=== PATIENT | female | born 1995 | race Caucasian/White ===

== ENCOUNTER 2017-05-15 20:07 | Inpatient (IN) | payer MEDICAID ==
[~2017-05-15] VITALS: Ht 154.9 cm; Wt 81.2 kg
[~2017-05-15 20:07] MED LIST: CIPR500T4 PO; PHEN-538 PO
[2017-05-15 20:19] VITALS: BP 135/81; PULSE 76; RESP 18; Ht 154.9 cm; Wt 81.2 kg
[2017-05-15] MEDS ORDERED: PREN-93 PO (20:21)
[2017-05-15] MEDS ORDERED: LACTATED RINGER'S 1,000 ML IV PRN (20:57)
[2017-05-15] MEDS ORDERED: HYDROCODONE/APAP (5/325) TAB PO PRN (21:00)
[2017-05-15] MEDS ORDERED: IBUPROFEN 600 MG TAB PO PRN (21:00)
[2017-05-15] MEDS ORDERED: LIDOCAINE 1% (MPF) 30 ML INJ INJ PRN (21:00)
[2017-05-15] MEDS ORDERED: OXYTOCIN 30 UNITS/LR 500 ML IV SCH ×3 (21:00→22:30)
[2017-05-15] MEDS ORDERED: CARBOPROST 250 MCG INJ IM PRN (21:00)
[2017-05-15] MEDS ORDERED: BUTORPHANOL 2 MG INJ IV PRN ×2 (21:00)
[2017-05-15] MEDS ORDERED: METHYLERGONOVINE 0.2 MG INJ IM PRN (21:00)
[2017-05-15] MEDS ORDERED: OXYTOCIN 30 UNITS/LR 500 ML IV PRN (21:00)
[2017-05-15] MEDS ORDERED: MISOPROSTOL 200 MCG TAB PR PRN (21:00)
[2017-05-15] MEDS ORDERED: AMPICILLIN 2 GM/NS (PMX) 100 ML IV ONE (21:00)
--- NOTE | 2017-05-15 21:05 | HP ---
Date/Time of Note Date/Time of Note DATE: 05/15/17 TIME: 21:00 OB - History Hx of Present Free Text/Dictation Patient is a 21-year-old 1 para 0 approximately 39 weeks of gestation who had care in [place] Chief Complaint: Labor contractions Estimated Due Date: May 22, 2017 : 1 Para: 0 Care: None Obstetrical Complications: None Medical Complications: None Past Family/Social History * Past Medical, Surgical, Family and Obstetric Histories reviewed from chart. OB Admission Exam Vital Signs Vital Signs Vital Signs Date Time Temp Pulse Resp B/P Pulse Ox O2 Delivery O2 Flow Rate FiO2 05/15/17 20:19 98.2 76 18 135/81 Room Air Physical Exam HEENT: WNL Heart: Rhythm Normal Lungs: Clear, Equal Abdomen: WNL Extremities: Normal Reflexes: Normal Cervical Dilatation: 3cm Effacement: 75% Station: -3 Membranes: Intact Accelerations: Accelerations Present Decelerations: No Decelerations Varibility: Moderate Contractions on Admission: < 5 Minutes Apart Intensity: Moderate OB Assessment/Plan Reason for admission: active labor Plan: Expectant Management Induction Method: per Pitocin Protocol Other plan: OB ultrasound for EFW Pain meds as needed Augmentation per protocal prn Plan for ESTELLE BURTON MD May 15, 2017 21:05
[2017-05-15] MEDS: LACTATED RINGER'S 1,000 ML IV SCH (22:09)
--- NOTE | 2017-05-15 22:15 | RADRPT ---
PROCEDURE: US OB. CLINICAL INDICATION: Size and dates , contractions TECHNIQUE: Multiple sonographic images of the pelvis and gravid uterus were obtained. The images were reviewed on a PACS workstation. COMPARISON: No prior studies are available for comparison. FINDINGS: There is a single viable intrauterine gestation. Cardiac activity is present with 137 beats per min [place]. There is a vertex presentation. The placenta is fundal. There is no evidence for an abruption or placenta previa. There is a normal amount of amniotic fluid with an LALA = 8.9 cm. Measurements were made in order to determine age. The results are as follows: BPD =9.0 cm HC =32.2 cm AC =33 cm FL =7.0 cm Estimated gestational age of approximately 36 weeks and 3 days based on ultrasound measurements. Clinical age: 39 weeks and 0 days. The estimated date of delivery is 06/09/17, based on ultrasound measurements. The EFW = 2966 g, 14.1%, based on LMP age. RPTAT: AA IMPRESSION: Single viable intrauterine gestation of approximately 36 weeks and 3 days based on ultrasound measu rements. .Bhupendra Shah MD, MD Date Time Electronically viewed and signed by .Bhupendra Shah MD, on 05/15/2017 22:15 .S/
--- NOTE | 2017-05-15 22:40 | TRIAGE ---
OB Triage Datetime Report Generated by CPN: 05/15/2017 22:40 Datetime: 05/15/2017 21:46 Assessment Type: Admission Assessment Vaginal Bleeding: None Maternal Assessment Level of Consciousness: Fully Conscious DTR's/Clonus: DTRs 2+; No Clonus Headache: Denies Blurred Vision: No Respiratory Effort: Unlabored; Regular Rhythm; Equal Expansion Breath Sounds, Left: Clear and Equal Breath Sounds, Right: Clear and Equal Nausea/Vomiting: Denies RUQ Epigastric Pain: Denies Lower Extremities Edema: None Upper Extremities Edema: None Facial Edema: None Fall Risk Assessment History of Falling: (0) No Secondary Diagnosis: (0) No Ambulatory Aid: (0) Bedrest/Nurse Assist IV Therapy: (0) No Gait: (0) Normal/Bedrest/Immobile Mental Status: (0) Oriented to Own Ability Fall Score: 0 Fall Risk Score Definition: No Risk: No action required Heart Rate FHR Baseline Rate: 135 Variability: Moderate 6-25 bpm Accelerations: 15X15 Decelerations: None Category: Category I Pain Assessment Pain Scale: 4 Pain Presence: Intermittent Pain Type: Contraction Pain Location: Abdomen Pain Goal: 3 Membrane Status: Intact Datetime: 05/15/2017 21:29 Membrane Status: Intact Datetime: 05/15/2017 21:26 Stage of : Labor Comments: MONITORS OFF, US TECH AT BEDSIDE FOR EFW. LALA. Datetime: 05/15/2017 21:25 Stage of : Labor Datetime: 05/15/2017 21:10 Time of Arrival: 05/15/2017 21:45 EGA: 39.0 Arrived By: Ambulatory Datetime: 05/15/2017 21:00 Labor Evaluation Frequency: 2 Monitor Mode: External Duration (sec)2399: 60-100 Quality: Mild Pattern: Normal: <= 5 Contractions in 10 Minutes Resting Tone [place]: Relaxed Heart Rate FHR Baseline Rate: 145 Monitor Mode: External US FHR Baseline Changes: No Baseline Change Variability: Moderate 6-25 bpm Accelerations: 15X15 Decelerations: None Category: Category I Datetime: 05/15/2017 20:36 Vaginal Exam Dilatation (cms): 4.0 Effacement (%): 70 Station: -3 Exam By: Chico VINCENT RN Vaginal Bleeding: Normal Show Cervix, Consistency: Soft Cervix, Position: Posterior Presentation 'A': Cephalic Datetime: 05/15/2017 20:17 EGA: 39.0 Time Provider Notified: 05/15/2017 20:28 Provider Notified: DR BURTON Datetime: 05/15/2017 20:13 Stage of : OB Triage Time of Arrival: 05/15/2017 20:00 Arrived By: Ambulatory Arrived From: Home Chief Complaint: CONTRACTIONS THAT STARTED @ 0700 Movement: Present Contractions: Irregular Time Contractions Began: 05/15/2017 07:00 Vaginal Bleeding: Scant Patient Complaints: None Time Provider Notified: 05/15/2017 20:28 Provider Notified: DR BURTON Initial Plan: CALL TERRY GONZALEZ Maternal Assessment Level of Consciousness: Fully Conscious DTR's/Clonus: DTRs 2+; No Clonus Headache: Denies Blurred Vision: No Respiratory Effort: Unlabored; Regular Rhythm; Equal Expansion Breath Sounds, Left: Clear and Equal Breath Sounds, Right: Clear and Equal Nausea/Vomiting: Denies RUQ Epigastric Pain: Denies Lower Extremities Edema: Bilateral Lower Extremities Degree: 1+ Upper Extremities Edema: None Degree: None Facial Edema: None Temperature Route: Oral Fall Risk Assessment History of Falling: (0) No Secondary Diagnosis: (0) No Ambulatory Aid: (0) Bedrest/Nurse Assist IV Therapy: (0) No Gait: (0) Normal/Bedrest/Immobile Mental Status: (0) Oriented to Own Ability Fall Score: 0 Fall Risk Score Definition: No Risk: No action required Monitor Mode: External Monitor Mode: External US Pain Assessment Pain Scale: 8 Pain Presence: Intermittent Pain Type: Contraction Pain Location: Abdomen; Back Pain Relief Measures: Comfort Measures Datetime: 05/15/2017 20:10 Vaginal Exam Dilatation (cms): 3.0 Effacement (%): 70 Station: -3 Exam By: Chico VINCENT RN Vaginal Bleeding: None Cervix, Consistency: Soft Cervix, Position: Posterior Presentation 'A': Cephalic
[2017-05-15 23:31] LABS: BASOPHILS % 0.1 % (0.0-2.0); EOSINOPHILS # 0.1 10^3/ul (0.0-0.5); EOSINOPHILS % 0.3 % (0.0-7.0); HEMATOCRIT 39.4 % (37.0-47.0); HEMOGLOBIN 13.8 g/dl (12.0-16.0); LYMPHOCYTES # 2.4 10^3/ul (0.8-2.9); LYMPHOCYTES % 16.6 % (18.0-55.0); MEAN CORPUSCULAR HEMOGLOBIN 32.3 pg (29.0-33.0); MEAN CORPUSCULAR VOLUME 92.3 fl (72.0-104.0); MEAN PLATELET VOLUME 11.5 fl (7.4-10.4); MONOCYTE # 0.9 10^3/ul (0.3-0.9); MONOCYTES % 6.6 % (0.0-13.0); NEUTROPHIL # 10.9 10^3/ul (1.6-7.5); NEUTROPHILS % 75.9 % (30.0-74.0); PLATELET COUNT 212 10^3/UL (140-415); RED BLOOD COUNT 4.27 10^6/ul (4.20-5.40); RED CELL DISTRIBUTION WIDTH 12.4 % (11.5-14.5); WHITE BLOOD COUNT 14.3 10^3/ul (4.8-10.8)
[2017-05-15 23:36] LABS: ADD UMIC YES; UR ASCORBIC ACID NEGATIVE (NEGATIVE); UR BILIRUBIN (Dip) NEGATIVE (NEGATIVE); UR BLOOD (Dip) 3+ mg/dL (NEGATIVE); UR CLARITY CLEAR (CLEAR); UR COLOR STRAW (YELLOW); UR GLUCOSE (Dip) NEGATIVE (NEGATIVE); UR KETONES (Dip) NEGATIVE (NEGATIVE); UR LEUKOCYTE ESTERASE (Dip) TRACE Leu/ul (NEGATIVE); UR NITRITE (Dip) NEGATIVE (NEGATIVE); UR RBC 0 /HPF (0-5); UR SPECIFIC GRAVITY (Dip) 1.001 (1.003-1.030); UR TOTAL PROTEIN (Dip) NEGATIVE (NEGATIVE); UR UROBILINOGEN (Dip) NEGATIVE (NEGATIVE)
[2017-05-15 23:56] LABS: CANNABINOIDS Positive (NEGATIVE)
[2017-05-15 23:56] LABS: ALANINE AMINOTRANSFERASE 28 IU/L (13-69); ALBUMIN 3.2 g/dl (3.3-4.9); ALKALINE PHOSPHATASE 338 IU/L (42-121); ANION GAP 14 (8-16); ASPARTATE AMINO TRANSFERASE 21 IU/L (15-46); BILIRUBIN,INDIRECT 0.3 mg/dl (0-1.1); BILIRUBIN,TOTAL 0.3 mg/dl (0.2-1.3); BLOOD UREA NITROGEN 7 mg/dl (7-20); CALCIUM 10.1 mg/dl (8.4-10.2); CARBON DIOXIDE 22 mmol/L (21-31); CHLORIDE 108 mmol/L (97-110); CREATININE 0.61 mg/dl (0.44-1.00); GLUCOSE 76 mg/dl (70-220); POTASSIUM 3.6 mmol/L (3.5-5.1); SODIUM 140 mmol/L (135-144); TOTAL PROTEIN 6.4 g/dl (6.1-8.1)
[2017-05-16 00:01] LABS: INR 0.89; PT RATIO 0.9
[2017-05-16 00:02] LABS: PARTIAL THROMBOPLASTIN TIME 29.2 Sec (25.0-35.0)
[2017-05-16 00:07] LABS: BARBITURATES Negative (NEGATIVE); BENZODIAZEPINES Negative (NEGATIVE); COCAINE Negative (NEGATIVE); OPIATES Negative (NEGATIVE)
[2017-05-16] MEDS ORDERED: FENTAnyl 2MCG/ML-ROPIV 0.2% 100 ML ONE (00:21)
[2017-05-16] MEDS: AMPICILLIN 1 GM/NS (PMX) 50 ML IV SCH ×2 (02:02→02:05)
[2017-05-16] MEDS ORDERED: CEFAZOLIN 2 GM/50 ML (PMX) 50 ML IV SCH (03:00)
[2017-05-16] MEDS ORDERED: CEFAZOLIN 2 GM/50 ML (PMX) 50 ML IVPB ONE (03:07)
--- NOTE | 2017-05-16 03:10 | PN ---
Date/Time of Note Date/Time of Note DATE: 05/16/17 TIME: 03:02 OB Subjective Subjective Subjective Patient was evaluated for repetitive variable decels and late decels OB Objective Objective Objective FHR 140s with variable decels and late decels Bowen q 2-3 min VE 7cm/100 %/ -1 AROM- clear fluid obtained Both IFM and IUPC was placed OB Assessment/Plan Reason for admission: active labor Other Assessment: Amnio-infusion was done Plan: Section Other plan: Patient was counseled that in the setting of Intolerance to Labor primary LTCS is recommended All risks including but not limited to infection, bleeding, trauma to other organs (bowel, bladder) were discussed with the patient Patient understood the plan of care and agreed to proceed with primary c/section ESTELLE BURTON MD May 16, 2017 03:10
[2017-05-16] MEDS ORDERED: METOCLOPRAMIDE 10 MG INJ ONE ×2 (03:22→10:30)
[2017-05-16] MEDS ORDERED: ONDANSETRON 4 MG INJ ONE ×2 (03:22→10:30)
[2017-05-16] MEDS ORDERED: LIDOCAINE 2%/EPI 30 ML INJ ONE ×2 (03:24→10:30)
[2017-05-16] MEDS ORDERED: morphine SULFATE/PF (10 MG/10 ML) INJ ONE ×2 (03:26→10:30)
[2017-05-16] MEDS ORDERED: KETOROLAC 30 MG INJ ONE (03:43)
[2017-05-16] MEDS ORDERED: FENTAnyl 50 MCG/ML VIAL ONE (03:43)
[2017-05-16] MEDS ORDERED: PHENYLephrine (100 MCG/ML) 5ML SYG ONE ×2 (03:56→03:57)
[2017-05-16] MEDS ORDERED: LIDOCAINE 2% (SDV) 5 ML INJ ONE (04:05)
[2017-05-16] MEDS: LACTATED RINGER'S 1,000 ML IV SCH ×4 (04:37→21:23)
--- NOTE | 2017-05-16 04:37 | OPPN ---
Date/Time of Note Date/Time of Note DATE: 05/16/17 TIME: 04:31 Operative Report Planned Procedure Free Text/Dictation Patient 21 y.o. 1 para 0 at 39 weeks of gestation with intolerance to labor heart rate with repetitive variable decelerations and late decelerations Procedure date May 16, 2017 Procedure(s) Primary low transverse section Performed by see signature line Surveying Technician Dr. Damian Pre-procedure diagnosis intolerance to labor Anesthesia Type: epidural Post-Procedure Post-procedure diagnosis Same Findings Live Baby [Boy], Apgars [8] and [9], weight [6 lbs. 7 oz./ 2910 g], position [OA ], [Vertex] presentation], cord around the neck x one Estimated Blood Loss: 400 - 500 mls Specimen(s) none Grafts/Implant(s) none Complication(s) none ESTELLE BURTON MD May 16, 2017 04:37
--- NOTE | 2017-05-16 04:40 | OPR ---
Operative Report Planned Procedure Free Text/Dictation Patient 21 y.o. 1 para 0 at 39 weeks of gestation with intolerance to labor heart rate with repetitive variable decelerations and late decelerations Procedure date May 16, 2017 Procedure(s) Primary low transverse section Performed by see signature line Programming Coordinator Dr Damian Pre-procedure diagnosis intolerance to labor Anesthesia Type: spinal Post-Procedure Post-procedure diagnosis Same Findings Live Baby [Boy], Apgars [8] and [9], weight [6 lbs. 7 oz./ 2910 g], position [OA ], [Vertex] presentation], cord around the neck x one IVF 1700 cc U/O 400 cc Estimated Blood Loss: 400 - 500 mls Specimen(s) Placenta Grafts/Implant(s) none Complication(s) none Pt Condition post procedure: stable Disposition: PACU Procedure Description Patient was taken to the operating room. After adequate amount of anesthesia was given patient was prepped and draped in normal sterile fashion A Pfannenstiel skin incision was made. The incision was carried through the underlying layer of fascia Fascia was in the midline and extended bilaterally using the Bovie Both anterior and posterior aspect of the fascia was grasped with Robert clamps and from underlying layer of rectus muscles using the Bovie Peritoneum was identified and entered bluntly without any complications. The peritoneal incision was extended bilaterally manually. An Nasim retractor was placed for retraction A bladder flap was developed using sharp scissors. Bladder blade was placed for protection of bladder A low transverse incision was made on the lower uterine segment with the scalpel Incision was extended bilaterally manually. Fetus was delivered from vertex presentation atraumatically. Nuchal cord 1 around the neck was reduced manually Fetus was handed over to the waiting boat driver team. Placenta was delivered manually intact. Uterine cavity was cleared of all clots and debris Uterine incision was closed with 1 Vicryl suture in running locked fashion. A second imbricating layer was placed with the same suture. Excellent hemostasis was noted. Multiple irrigations were performed and all blood clots were removed. Both adnexa appeared normal Surgicel material was placed on the uterine incision line for further hemostasis and adhesion prevention Nasim retractor was removed. Peritoneal closure was proceeded with 2-0 Vicryl in running fashion Rectus muscles were reapproximated with 2-0 Vicryl in an interrupted fashion Fascial closure was proceeded with 0 Vicryl in running fashion in 2 separate segments Subcutaneous layer was irrigated and excellent hemostasis noted. Subcutaneous closure proceeded with 2-0 plain in an interrupted fashion Skin closure was proceeded with end-sorb asia and Dermabond All sponges, laps and needle counts were correct. Patient tolerated the procedure well and taken back to recovery room in a stable condition ESTELLE BURTON MD May 16, 2017 04:40
[2017-05-16] MEDS ORDERED: morphine 4 MG/ML VIAL IV PRN (05:00)
[2017-05-16] MEDS ORDERED: NALOXONE (0.4 MG/ML) INJ IV PRN ×2 (05:00)
[2017-05-16] MEDS ORDERED: OXYCODONE/ACETAMINOPHEN (5/325) TAB PO PRN ×2 (05:00)
[2017-05-16] MEDS ORDERED: OXYTOCIN 30 UNITS/LR 500 ML IV PRN (05:00)
[2017-05-16] MEDS ORDERED: CARBOPROST 250 MCG INJ IM PRN (05:00)
[2017-05-16] MEDS ORDERED: BISACODYL 10 MG SUPP PR PRN (05:00)
[2017-05-16] MEDS ORDERED: MISOPROSTOL 200 MCG TAB PR PRN (05:00)
[2017-05-16] MEDS ORDERED: ONDANSETRON 4 MG INJ IV PRN ×3 (05:00)
[2017-05-16] MEDS ORDERED: ACETAMINOPHEN 325 MG TAB PO PRN (05:00)
[2017-05-16] MEDS ORDERED: FENTAnyl 2MCG/ML-ROPIV 0.2% 100 ML BAG EPI SCH (05:00)
[2017-05-16] MEDS ORDERED: MAGNESIUM HYDROXIDE 30ML CUP PO PRN (05:00)
[2017-05-16] MEDS ORDERED: morphine 2 MG INJ IV PRN ×2 (05:00)
[2017-05-16] MEDS ORDERED: LANOLIN 7 GM TUBE TOP PRN (05:00)
[2017-05-16] MEDS ORDERED: METHYLERGONOVINE 0.2 MG INJ IM PRN (05:00)
[2017-05-16] MEDS ORDERED: DIPHENHYDRAMINE 50 MG INJ IV PRN ×2 (05:00)
[2017-05-16] MEDS ORDERED: SENNA/DOCUSATE NA (8.6MG/50MG) TAB PO PRN (05:00)
[2017-05-16] MEDS ORDERED: morphine (1 MG/ML) 10ML SYRINGE IV PRN ×3 (05:00)
[2017-05-16 08:00] VITALS: BP 111/66; PULSE 71; RESP 18
[2017-05-16] MEDS: OXYTOCIN 30 UNITS/LR 500 ML IV SCH ×2 (08:18→08:37)
[2017-05-16] MEDS ORDERED: OXYTOCIN 10 UNIT INJ ONE (10:30)
[2017-05-16] MEDS ORDERED: OXYTOCIN 30 UNITS/LR 500 ML IV ONE (10:30)
[2017-05-16] MEDS ORDERED: EPHEDrine SULFATE 50 MG/5 ML SYG ONE (10:30)
[2017-05-16] MEDS: CEFAZOLIN 1 GM/50 ML (PMX) 50 ML IVPB SCH ×2 (10:49→18:15)
[2017-05-16] MEDS: KETOROLAC 30 MG INJ IV PRN ×2 (11:43→17:28)
[2017-05-16 16:00] VITALS: BP 117/74; PULSE 84; RESP 18
[2017-05-16 20:00] VITALS: BP 120/73; PULSE 88; RESP 20
[2017-05-17] MEDS: KETOROLAC 30 MG INJ IV PRN (00:23)
[2017-05-17] MEDS: CEFAZOLIN 1 GM/50 ML (PMX) 50 ML IVPB SCH (02:47)
[2017-05-17 04:30] VITALS: BP 122/57; PULSE 75; RESP 18
[2017-05-17] MEDS: LACTATED RINGER'S 1,000 ML IV SCH (04:37)
[2017-05-17] MEDS: IBUPROFEN 600 MG TAB PO PRN ×3 (06:05→17:39)
[2017-05-17 07:50] VITALS: BP 116/79; PULSE 76; RESP 18
--- NOTE | 2017-05-17 07:56 | PN ---
Date/Time of Note Date/Time of Note DATE: 05/17/17 TIME: 07:52 Assessment/Plan VTE Prophylaxis VTE Prophylaxis Intervention: ambulation, anti-embolic stocking Lines/Catheters IV Catheter Type (from Nrsg): Peripheral IV Subjective 24 Hr Interval Summary Free Text/Dictation Anesthesia note A21 year old female s/p duramorph pod#1 is doing fine. no pain, n/v, back pain, sensory deficit, headache, itching. care per surgery Exam/Review of Systems Vital Signs Vitals Vital Signs Date Time Temp Pulse Resp B/P Pulse Ox O2 Delivery O2 Flow Rate FiO2 05/17/17 04:30 97.9 75 18 122/57 Room Air Intake and Output 05/16/17 05/16/17 05/17/17 15:00 23:00 07:00 Intake Total 1050 ml 800 ml 675 ml Output Total 200 ml 1000 ml 600 ml Balance 850 ml -200 ml 75 ml Results Result Diagram: 05/15/17219905/15/172199 Medications Medications Current Medications Acetaminophen/ Hydrocodone Bitart ([place] (5/325)) 2 tab ONCE PRN PO Moderate to Severe Pain (4-10); Start 05/15/17 at 21:00 Naloxone HCl (Narcan) 0.2 mg Q2M PRN IV FOR RESP RATE 8 OR LESS; Start at 05:00 Oxycodone/ Acetaminophen (Percocet (5/ 325)) 1 tab Q4H PRN PO PAIN LEVEL 4-6; Start 05/16/17 at 05:00 Oxycodone/ Acetaminophen (Percocet (5/ 325)) 2 tab Q4H PRN PO PAIN LEVEL 7-10; Start 05/16/17 at 05:00 Simethicone 160 mg 160 mg Q8H PRN PO DISTENSION/GAS/BLOATING; Start 05/16/17 at 05:00 Oxytocin/Lactated Ringer's 500 ml @ 0 mls/hr ONCE PRN IV For Hemorrhage Management; Start 05/16/17 at 05:00 Methylergonovine Maleate (Methergine) 0.2 mg ONCE PRN IM VAGINAL BLEEDING; Start 05/16/17 at 05:00 Carboprost Tromethamine (Hemabate) 250 mcg ONCE PRN IM VAGINAL BLEEDING; Start 05/16/17 at 05:00 Misoprostol (Cytotec) 1,000 mcg ONCE PRN ID VAGINAL BLEEDING; Start 05/16/17 at 05:00 Acetaminophen (Tylenol Tab) 650 mg Q6H PRN PO PAIN AND OR ELEVATED TEMP; Start 05/16/17 at 05:00 Bisacodyl (Dulcolax Supp) 10 mg ONCE PRN ID constipation; Start 05/16/17 at 05: 00 Ibuprofen (Motrin) 600 mg Q6H PRN PO PAIN Last administered on 05/17/17t 06:05 ; Admin Dose 600 MG; Start 05/17/17 at 05:00 Senna/Docusate Sodium (Senokot-S) 1 tab BID PRN PO CONSTIPATION; Start at 05:00 Magnesium Hydroxide (Milk Of Mag) 30 ml BID PRN PO CONSTIPATION; Start at 05:00 Influenza Virus Vaccine (Fluzone) 0.5 ml ONCE ONCE IM* ; Start 05/17/17 at 09: 00; Stop 05/17/17 at 09:01 ESSIE AG MD May 17, 2017 07:56
[2017-05-17 08:56] LABS: BASOPHILS % 0.2 % (0.0-2.0); EOSINOPHILS # 0.1 10^3/ul (0.0-0.5); EOSINOPHILS % 0.5 % (0.0-7.0); HEMATOCRIT 36.1 % (37.0-47.0); HEMOGLOBIN 12.5 g/dl (12.0-16.0); LYMPHOCYTES # 2.1 10^3/ul (0.8-2.9); LYMPHOCYTES % 16.5 % (18.0-55.0); MEAN CORPUSCULAR HEMOGLOBIN 32.6 pg (29.0-33.0); MEAN CORPUSCULAR HGB CONC 34.6 g/dl (32.0-37.0); MONOCYTE # 0.6 10^3/ul (0.3-0.9); MONOCYTES % 4.4 % (0.0-13.0); NEUTROPHILS % 77.9 % (30.0-74.0); PLATELET COUNT 193 10^3/UL (140-415); RED BLOOD COUNT 3.84 10^6/ul (4.20-5.40); RED CELL DISTRIBUTION WIDTH 12.7 % (11.5-14.5); WHITE BLOOD COUNT 12.8 10^3/ul (4.8-10.8)
[2017-05-17] MEDS ORDERED: INFLUENZA VIRUS VACCINE 0.5 ML SYG IM* ONE (09:00)
[2017-05-17 09:18] LABS: BILIRUBIN,INDIRECT 0.4 mg/dl (0-1.1); BILIRUBIN,TOTAL 0.4 mg/dl (0.2-1.3); CALCIUM 8.5 mg/dl (8.4-10.2); CREATININE 0.7 mg/dl (0.44-1.00); POTASSIUM 4.1 mmol/L (3.5-5.1)
--- NOTE | 2017-05-17 12:51 | QN ---
Documentation Comment pod1 pt doing well vss exam wnl CDI a.p pod 1 continue care JAY LOPEZ MD May 17, 2017 12:51
[2017-05-17 15:41] VITALS: BP 126/80; PULSE 83; RESP 18
[2017-05-17 20:00] VITALS: BP 119/77; PULSE 86; RESP 18
[2017-05-18 04:30] VITALS: BP 133/86; PULSE 72; RESP 20
[2017-05-18 08:00] VITALS: BP 137/89; PULSE 79; RESP 18
--- NOTE | 2017-05-18 08:59 | QN ---
Documentation Comment Postop day #2 status post primary low transverse Patient stable and afebrile Positive flatus, no bowel movement Positive voiding urine Vital signs stable Abdomen soft nontender/nondistended Incision clean dry intact Extremities nontender CBC within normal limits today Assessment plan Patient encouraged to ambulate Continue with present management Plan to discharge home tomorrow ESTELLE BURTON MD May 18, 2017 08:59
[2017-05-18 16:40] VITALS: BP 120/80; PULSE 73; RESP 18
[2017-05-18 20:00] VITALS: BP 120/83; PULSE 75; RESP 18
[2017-05-18] MEDS: IBUPROFEN 600 MG TAB PO PRN (23:45)
[2017-05-19 04:00] VITALS: BP 102/61; PULSE 63; RESP 18
[2017-05-19 07:30] VITALS: BP 131/89; PULSE 65; RESP 18
[2017-05-19 11:56] LABS: RUBELLA ANTIBODY - IGG 1.18 index
--- NOTE | 2017-05-19 12:26 | QN ---
Documentation Comment POD#3 is stable afebrile tolerates Diet No VB +BM +voids VS stable Gen NAD Abd soft NT ND Incision intact Genitalai No blood at perinium --->discharge plan today TRISH PRESLEY M.D. May 19, 2017 12:26
--- NOTE | 2017-05-19 12:27 | DS ---
Date/Time of Note Date/Time of Note DATE: 05/19/17 TIME: 12:26 Discharge Summary Admission/Discharge Info Admit Date/Time May 15, 2017 at 20:46 Discharge Date/Time 05/19/2017 Discharge Diagnosis Patient Condition: Good Procedures c/section Hospital Course uneventful Home Meds Reported Medications Vit No.124/Iron/FA ( Vitamin Tablet) 1 Each Tablet, 1 EACH PO, TAB 05/15/17 Discontinued Reported Medications [None] Unknown Strength No Conflict Check 02/25/16 Discontinued Scripts Phenazopyridine Hcl* (Pyridium*) 200 Mg Tab, 200 MG PO TID Y for URINARY PAIN, # 6 TAB Prov:BRADEN HADDAD NP 02/25/16 Ciprofloxacin Hcl* (Ciprofloxacin Hcl*) 500 Mg Tablet, 500 MG PO BID for 10 Days , TAB Prov:BRADEN HADDAD NP 02/25/16 Primary Care Provider Care Physician No Primary TRISH PRESLEY M.D. May 19, 2017 12:27
[2017-05-19 15:40] VITALS: BP 135/86; PULSE 70; RESP 18
[2017-05-19] MEDS ORDERED: DIPHTH/TET TOX 0.5 ML INJ (ADULT) IM* ONE (16:00)
[2017-05-19] MEDS ORDERED: DIPHTH/TET/ACEL PERTUSS (ADULT) 0.5 ML VIAL IM* ONE (16:30)
== END 2017-05-19 18:00 | disposition home or self-care (01) | DRG 766 ==
LOC: OBT 20:07 → L-D 20:08 → OBT 20:46 → L-D 05-16 03:21 → PP1 05-16 07:59
PROVIDERS: ADMIT Obstetrics & Gynecology Gynecology; ATTEND Obstetrics & Gynecology Gynecology
PROC: 4A1HXCZ Monitoring of Products of Conception, Cardiac Rate, External Approach (ICD-10-PCS; 2017-05-15)
PROC: 10907ZC Drainage of Amniotic Fluid, Therapeutic from Products of Conception, Via Natural or Artificial Opening (ICD-10-PCS; 2017-05-16)
PROC: 3E0E77Z Introduction of Electrolytic and Water Balance Substance into Products of Conception, Via Natural or Artificial Opening (ICD-10-PCS; 2017-05-16)
PROC: 10H07YZ Insertion of Other Device into Products of Conception, Via Natural or Artificial Opening (ICD-10-PCS; 2017-05-16)
PROC: 10H073Z Insertion of Monitoring Electrode into Products of Conception, Via Natural or Artificial Opening (ICD-10-PCS; 2017-05-16)
PROC: 4A1H74Z Monitoring of Products of Conception, Cardiac Electrical Activity, Via Natural or Artificial Opening (ICD-10-PCS; 2017-05-16)
PROC: 10D00Z1 Extraction of Products of Conception, Low, Open Approach (ICD-10-PCS; principal; 2017-05-16 03:45)
PROC: 3E0234Z Introduction of Serum, Toxoid and Vaccine into Muscle, Percutaneous Approach (ICD-10-PCS; 2017-05-17)
DX: O76 Abnormality in fetal heart rate and rhythm complicating labor and delivery (principal); Z23 Encounter for immunization; Z37.0 Single live birth; Z3A.39 39 weeks gestation of pregnancy
CPT/HCPCS: 62319; 76815; 80053; 80307; 81001; 85025; 85610; 85730; 86592; 86703; 86762; 86850; 86900; 86901; 86920; 87086; 87340; 88307; 90686; 90715; 99464; G0463; J0290; J0690; J1885; J2274; J2370; J2405; J2590; J2765; J3010; J7120